=== PATIENT | female | born 1950 | race Two or more races ===

== ENCOUNTER 2024-03-09 10:09 | Inpatient (IN) | payer MEDICARE, OTHER ==
[~2024-03-09] VITALS: Ht 149.9 cm; Wt 40.8 kg
[2024-03-09] MEDS ORDERED: ADENOSINE 3 MG/ML 2ML VIAL IV ONE (10:26)
[2024-03-09] MEDS: ADENOSINE 3 MG/ML 2ML VIAL IV ONE ×3 (10:32→11:01)
[2024-03-09 11:18] LABS: HEMATOCRIT. 30.1 % (36.0-48.0); HEMOGLOBIN. 9.7 g/dL (12.0-16.0); MEAN CORPUSCULAR HEMOGLOBIN 34.5 pg (28.0-32.0); MEAN CORPUSCULAR HGB CONC 32.1 g/dL (31.0-37.0); MEAN CORPUSCULAR VOLUME 107.3 fL (81.0-99.0); MEAN PLATELET VOLUME 6.4 fl (7.4-10.4); PLATELET 231 x1000/uL (130-400); RED CELL DISTRIBUTION WIDTH 16.1 % (11.6-14.6); WHITE BLOOD COUNT 25.6 x1000/uL (4.5-11.0)
[2024-03-09 11:21] LABS: CHLORIDE 110 mEq/L (98-107); POTASSIUM 3.6 mEq/L (3.5-5.1); SODIUM 138 mEq/L (136-145)
[2024-03-09 11:22] LABS: CALCIUM 8.4 mg/dL (8.7-10.4); CARBON DIOXIDE 21 mEq/L (21-32)
[2024-03-09 11:24] LABS: DIFFERENTIAL COMMENT 1
[2024-03-09 11:27] LABS: CREATININE 1.3 mg/dL (0.6-1.0); GLUCOSE 102 mg/dL (70-105); UREA NITROGEN BLOOD 20 mg/dL (9-23)
[2024-03-09 11:28] LABS: TROPONIN I HIGH SENSITIVITY 15 ng/L (3.0-34)
[2024-03-09] MEDS: KETOROLAC 30MG/ML VIAL IV ONE (11:47)
[2024-03-09] MEDS: METOPROLOL TARTRATE 25MG TABLET PO SCH (13:45)
[2024-03-09 14:17] LABS: IRON 12 ug/dL (50-170); TRIGLYCERIDE 55 mg/dL (0-150)
[2024-03-09 14:18] LABS: LDL CHOLESTEROL 39 mg/dL (5-100)
[2024-03-09 14:19] LABS: ALANINE AMINOTRANSFERASE 10 IU/L (10-49); ALBUMIN 3.4 g/dL (3.2-4.8); ASPARTATE AMINOTRANSFERASE 24 IU/L (<34); BILIRUBIN DIRECT 0.5 mg/dL (<=3.0); CHOLESTEROL 95 mg/dL (<200); HDL CHOLESTEROL 43 mg/dL (>65)
[2024-03-09 14:20] LABS: BILIRUBIN TOTAL 1.3 mg/dL (0.1-1.0); PROTEIN TOTAL 5.5 g/dL (6.0-8.3); TOTAL IRON BINDING CAPACITY 210 ug/dl (250-425)
[2024-03-09 14:21] LABS: FOLIC ACID (FOLATE) SERUM 13.47 ng/mL (>5.38); VITAMIN B12 SERUM 500 pg/mL (211-911)
[2024-03-09 14:22] LABS: ETHANOL BLOOD < 10 mg/dL (<10); T4 FREE 0.97 ng/dL (0.89-1.76); THYROID STIMULATING HORMONE 0.61 uIU/mL (0.55-4.78)
[2024-03-09 16:00] LABS: ANISOCYTOSIS 1+; PLATELET ESTIMATE NORMAL
[2024-03-09] MEDS ORDERED: ACETAMINOPHEN 325MG TABLET PO PRN (17:30)
[2024-03-09] MEDS: LACTATED RINGERS IV ONE (17:30)
[2024-03-09] MEDS: LACTATED RINGERS 1,000 ML IV SCH (17:30)
[2024-03-09] MEDS ORDERED: IPRATROPIUM/ALBUTEROL 0.5-3(2.5)MG/3ML NEB NEB PRN (17:30)
[2024-03-09] MEDS ORDERED: GUAIFENESIN 200MG/10ML SUGAR FREE UDC PO PRN (17:30)
[2024-03-09] MEDS ORDERED: DOCUSATE SODIUM 100MG CAPSULE PO PRN (17:30)
[2024-03-09] MEDS ORDERED: MAGNESIUM/ALUMINUM HYDROXIDE/SIMETHICONE 30ML UDC PO PRN (17:30)
[2024-03-09] MEDS ORDERED: ZOLPIDEM TARTRATE 5MG TABLET PO PRN (17:30)
[2024-03-09 18:00] VITALS: BP 100/71; PULSE 62; RESP 29; TEMP 36.78072; O2SAT 98
[2024-03-09] MEDS ORDERED: CEFTRIAXONE 1GM/50ML 50 ML IV SCH (18:00)
[2024-03-09 18:31] VITALS: BP 92/62; PULSE 63; RESP 21; TEMP 36.8072
[2024-03-09 19:16] VITALS: BP 100/71; PULSE 62; RESP 29; TEMP 36.6696; O2SAT 98
[2024-03-09] MEDS: ENOXAPARIN 30MG/0.3ML SYR SUBCUT SCH (19:46)
[2024-03-09] MEDS ORDERED: AZITHROMYCIN 500MG/250ML 250 ML IV SCH (20:00)
[2024-03-09] MEDS: CEFTRIAXONE 1GM/50ML 50 ML IV SCH (20:27)
[2024-03-09] MEDS: ASCORBIC ACID 500 MG TABLET PO SCH (20:34)
[2024-03-09] MEDS: FAMOTIDINE 20MG TABLET PO SCH (20:34)
[2024-03-09] MEDS: AZITHROMYCIN 500MG/250ML 250 ML IV SCH (22:05)
[2024-03-09 22:31] LABS: INR 1.2; PROTHROMBIN TIME 12.8 sec (9.6-11.0)
[2024-03-09 22:46] LABS: LACTIC ACID 4.6 mmol/L (0.4-2.0)
[2024-03-09] MEDS: KETOROLAC 15MG/ML VIAL IV PRN (22:57)
[2024-03-10] VITALS: BP 92/61; PULSE 57; RESP 15; O2SAT 99
[2024-03-10 01:15] LABS: CREATINE KINASE MB FRACTION 0.5 ng/mL (0.5-3.6)
[2024-03-10 04:00] VITALS: BP 95/59; PULSE 56; RESP 20; TEMP 36.50292; O2SAT 97
[2024-03-10 07:00] LABS: CHLORIDE 107 mEq/L (98-107); POTASSIUM 3.7 mEq/L (3.5-5.1)
[2024-03-10 07:01] LABS: SODIUM 136 mEq/L (136-145)
[2024-03-10 07:04] LABS: CALCIUM 8.6 mg/dL (8.7-10.4); CARBON DIOXIDE 21 mEq/L (21-32); CREATINE KINASE MB FRACTION < 0.5 ng/mL (0.5-3.6); TROPONIN I HIGH SENSITIVITY 24 ng/L (3.0-34)
[2024-03-10 07:09] LABS: ALANINE AMINOTRANSFERASE 10 IU/L (10-49); CREATININE 1.6 mg/dL (0.6-1.0); GLUCOSE 103 mg/dL (70-105); UREA NITROGEN BLOOD 31 mg/dL (9-23)
[2024-03-10 07:11] LABS: ASPARTATE AMINOTRANSFERASE 19 IU/L (<34); BILIRUBIN TOTAL 0.5 mg/dL (0.1-1.0); CREATINE KINASE 27 IU/L (34-145); PHOSPHORUS 2.3 mg/dL (2.5-4.9); PROTEIN TOTAL 4.8 g/dL (6.0-8.3)
[2024-03-10 07:20] LABS: HEMATOCRIT. 31.2 % (36.0-48.0); HEMOGLOBIN. 10.2 g/dL (12.0-16.0); MEAN CORPUSCULAR HEMOGLOBIN 34.7 pg (28.0-32.0); MEAN CORPUSCULAR HGB CONC 32.7 g/dL (31.0-37.0); MEAN CORPUSCULAR VOLUME 106.1 fL (81.0-99.0); MEAN PLATELET VOLUME 7.7 fl (7.4-10.4); PLATELET 182 x1000/uL (130-400); RED BLOOD CELL COUNT 2.94 mill/uL (4.2-5.4); RED CELL DISTRIBUTION WIDTH 16.4 % (11.6-14.6); WHITE BLOOD COUNT 26.4 x1000/uL (4.5-11.0)
[2024-03-10 07:35] LABS: DIFFERENTIAL COMMENT 1
[2024-03-10 07:51] LABS: *AMPHETAMINES SCREEN URINE NEGATIVE (NEGATIVE); *BARBITURATES SCREEN URINE NEGATIVE (NEGATIVE); *BENZODIAZEPINES SCREEN URINE NEGATIVE (NEGATIVE); *COCAINE SCREEN URINE NEGATIVE (NEGATIVE); CANNABINOID URINE SCREEN NEGATIVE (NEGATIVE)
[2024-03-10 07:52] LABS: ECSTASY MDMA SCREEN URINE NEGATIVE (NEGATIVE); METHADONE URINE SCREEN NEGATIVE (NEGATIVE); OPIATES URINE SCREEN NEGATIVE (NEGATIVE); PHENCYCLIDINE URINE SCREEN NEGATIVE (NEGATIVE)
[2024-03-10 08:00] VITALS: BP 91/60; PULSE 57; RESP 19; TEMP 36.05844; O2SAT 100
[2024-03-10] MEDS ORDERED: ASPIRIN 325MG EC TABLET PO SCH (09:00)
[2024-03-10] MEDS: ZINC SULFATE 220 MG ( 50 ) CAPSULE PO SCH (09:26)
[2024-03-10 12:00] VITALS: BP 105/65; PULSE 83; RESP 24; TEMP 36.22512; O2SAT 98
[2024-03-10 16:00] VITALS: BP 120/75; PULSE 75; RESP 21; TEMP 36.6696; O2SAT 95
[2024-03-10 17:13] LABS: ANISOCYTOSIS 1+; PLATELET ESTIMATE NORMAL
[2024-03-10 20:00] VITALS: BP 115/74; PULSE 84; RESP 18; TEMP 36.9474; O2SAT 99
[2024-03-10] MEDS: METOPROLOL TARTRATE 25MG TABLET PO SCH (21:03)
[2024-03-11 04:00] VITALS: BP 124/75; PULSE 70; RESP 17; TEMP 36.78072; O2SAT 98
[2024-03-11 08:00] VITALS: BP 138/71; PULSE 70; RESP 18; TEMP 37.28076; O2SAT 98
[2024-03-11] MEDS: ASPIRIN 81MG TABLET PO SCH (09:22)
[2024-03-11] MEDS: ONDANSETRON HCL 4MG/2ML INJ IV PRN (09:31)
[2024-03-11 12:00] VITALS: BP 155/111; PULSE 69; RESP 14; TEMP 36.72516; O2SAT 97
[2024-03-11 16:00] VITALS: BP 124/63; PULSE 71; RESP 20; TEMP 36.78072; O2SAT 97
[2024-03-11 20:00] VITALS: BP 145/76; PULSE 78; RESP 23; TEMP 37.00296; O2SAT 100
[2024-03-12] VITALS: BP 151/78; PULSE 75; RESP 51; TEMP 37.05852; O2SAT 100
[2024-03-12 04:00] VITALS: BP 164/78; PULSE 63; RESP 27; TEMP 36.3918; O2SAT 98
[2024-03-12 08:00] VITALS: BP 153/76; PULSE 61; RESP 20; TEMP 37.00296; O2SAT 97
[2024-03-12] MEDS: CLONIDINE 0.1MG TABLET PO PRN (08:45)
[2024-03-12 12:00] VITALS: BP 104/65; PULSE 55; RESP 22; TEMP 36.9474; O2SAT 99
[2024-03-12] MEDS: AMLODIPINE 10MG TABLET PO SCH (12:00)
[2024-03-12] MEDS ORDERED: CEFAZOLIN 1000MG PREMIX 50 ML IV SCH (15:30)
[2024-03-12 16:00] VITALS: BP 107/62; PULSE 63; RESP 16; TEMP 37.00296; O2SAT 98
[2024-03-12] MEDS: CEFAZOLIN 1000MG PREMIX 50 ML IV SCH (17:45)
[2024-03-12] MEDS: ACETAMINOPHEN 325MG TABLET PO PRN (17:45)
[2024-03-12 20:15] VITALS: BP 107/89; PULSE 51; RESP 19; TEMP 36.16956; O2SAT 100
[2024-03-13] VITALS (67 sets, daily range): BP systolic 49–129; BP diastolic 22–93; PULSE 49–157; RESP 9–46; TEMP 36.114–36.89184; O2SAT 72–100
[2024-03-13] MEDS: NITROGLYCERIN 0.4MG TABLET SL SL PRN (01:04)
[2024-03-13] MEDS: ADENOSINE 3 MG/ML 2ML VIAL IV NR ×2 (04:04→04:34)
[2024-03-13] MEDS: METOPROLOL TARTRATE 5MG/5ML VIAL IV PRN (04:33)
[2024-03-13] MEDS: LORAZEPAM 2MG/ML INJ IV NR (04:49)
[2024-03-13] MEDS: DIGOXIN 500MCG/2ML AMP IV NR (05:19)
[2024-03-13] MEDS: METOPROLOL TARTRATE 5MG/5ML VIAL IV NR (05:20)
[2024-03-13] MEDS: SODIUM CHLORIDE 0.9% 500 ML IV NR (05:21)
[2024-03-13] MEDS ORDERED: DILTIAZEM HCL 125 MG in DEXT 5% WATER 100 ML IV ONE (05:30)
[2024-03-13] MEDS ORDERED: AMIODARONE 150MG/100ML 100 ML IV NR (06:00)
[2024-03-13 06:34] LABS: BG BASE EXCESS -7.2 mmol/L (-2.0-2.0); BG FRACTION INSPIRED OXYGEN 36; BG PCO2 20.2 mmHg (35.0-45.0); BG PH 7.459 (7.350-7.450); BG PO2 95.8 mmHg (75.0-100.0); BG VENT MODE NASAL CANNULA
[2024-03-13] MEDS: AMIODARONE HCL 900 MG in DEXT 5% WATER 482 ML IV PRN (07:42)
[2024-03-13] MEDS ORDERED: PHENYLEPHRINE 50 MG in DEXT 5% WATER 245 ML IV PRN (10:00)
[2024-03-13 10:12] LABS: CARBON DIOXIDE 10 mEq/L (21-32); CHLORIDE 107 mEq/L (98-107); POTASSIUM 4.5 mEq/L (3.5-5.1); SODIUM 135 mEq/L (136-145)
[2024-03-13 10:13] LABS: CALCIUM 8.6 mg/dL (8.7-10.4)
[2024-03-13 10:18] LABS: UREA NITROGEN BLOOD 27 mg/dL (9-23)
[2024-03-13 10:18] LABS: TROPONIN I HIGH SENSITIVITY 6186 ng/L (3.0-34)
[2024-03-13 10:18] LABS: HEMATOCRIT 34.7 % (36.0-48.0); HEMOGLOBIN 10.3 g/dL (12.0-16.0); MEAN CORPUSCULAR HEMOGLOBIN 33.8 pg (28.0-32.0); MEAN CORPUSCULAR HGB CONC 29.7 g/dL (31.0-37.0); PLATELET 64 x1000/uL (130-400); RED BLOOD CELL COUNT 3.04 mill/uL (4.2-5.4); RED CELL DISTRIBUTION WIDTH 18.1 % (11.6-14.6)
[2024-03-13 10:19] LABS: CREATINE KINASE MB FRACTION 7.1 ng/mL (0.5-3.6)
[2024-03-13 10:20] LABS: CREATINE KINASE 329 IU/L (34-145); PHOSPHORUS 2.2 mg/dL (2.5-4.9)
[2024-03-13 10:21] LABS: CREATININE 2.4 mg/dL (0.6-1.0)
[2024-03-13 10:23] LABS: GLUCOSE 48 mg/dL (70-105)
[2024-03-13] MEDS: DEXTROSE 50% WATER 50ML SYRINGE IV PRN (10:49)
[2024-03-13 11:41] LABS: BG BASE EXCESS -20.8 mmol/L (-2.0-2.0); BG CARBOXYHEMOGLOBIN 0.3 % (0.5-1.5); BG DEOXYHEMOGLOBIN 4.5 % (0.0-5.0); BG FRACTION INSPIRED OXYGEN 32; BG HCO3 ACT 6.4 mmol/L (22.0-26.0); BG METHEMOGLOBIN 0.3 % (0.0-1.5); BG OXYGEN SATURATION 95.5 % (92.0-98.5); BG OXYHEMOGLOBIN 94.9 % (94.0-97.0); BG PCO2 19.3 mmHg (35.0-45.0); BG PH 7.137 (7.350-7.450); BG PO2 93.3 mmHg (75.0-100.0); BG SAMPLE SITE RIGHT RADIAL; BG TOTAL HEMOGLOBIN 10.3 g/dL (12.0-18.0); BG VENT MODE NASAL CANNULA
[2024-03-13] MEDS: SODIUM BICARBONATE 8.4% 50MEQ/50ML SYR IV NR (11:46)
[2024-03-13] MEDS: MEROPENEM 1G/100ML 100 ML IV SCH (12:02)
[2024-03-13] MEDS ORDERED: LIDOCAINE HCL 1% 10 MG/ML 10ML VIAL ONE (12:41)
[2024-03-13] MEDS: VANCOMYCIN 500MG/100ML IV SCH (13:18)
[2024-03-13] MEDS: SODIUM BICARBONATE 150 MEQ in SODIUM CHLORIDE 0.45% 850 ML IV SCH (13:45)
[2024-03-13 16:46] LABS: BG CARBOXYHEMOGLOBIN 0.3 % (0.5-1.5); BG DEOXYHEMOGLOBIN 0.4 % (0.0-5.0); BG FRACTION INSPIRED OXYGEN 36; BG HCO3 ACT 18.6 mmol/L (22.0-26.0); BG METHEMOGLOBIN 0.3 % (0.0-1.5); BG OXYGEN SATURATION 99.6 % (92.0-98.5); BG PCO2 23.4 mmHg (35.0-45.0); BG PH 7.517 (7.350-7.450); BG PO2 160.1 mmHg (75.0-100.0); BG SAMPLE SITE RIGHT RADIAL; BG VENT MODE NASAL CANNULA
[2024-03-13] MEDS: SODIUM BICARBONATE 150 MEQ in DEXTROSE 5% WATER 850 ML IV SCH (17:43)
[2024-03-13] MEDS: MEROPENEM 500MG/50ML IV SCH (20:35)
[2024-03-14] VITALS (92 sets, daily range): BP systolic 81–124; BP diastolic 50–86; PULSE 62–92; RESP 13–40; TEMP 36.3918–36.9474; O2SAT 60–100
[2024-03-14 06:08] LABS: POTASSIUM 3.3 mEq/L (3.5-5.1)
[2024-03-14 06:09] LABS: CALCIUM 7.9 mg/dL (8.7-10.4)
[2024-03-14 06:14] LABS: CREATININE 2.1 mg/dL (0.6-1.0)
[2024-03-14 07:35] LABS: HEMATOCRIT. 29.7 % (36.0-48.0); HEMOGLOBIN. 9.7 g/dL (12.0-16.0); MEAN CORPUSCULAR HEMOGLOBIN 33.8 pg (28.0-32.0); MEAN CORPUSCULAR HGB CONC 32.8 g/dL (31.0-37.0); MEAN CORPUSCULAR VOLUME 103.1 fL (81.0-99.0); MEAN PLATELET VOLUME 9.4 fl (7.4-10.4); RED BLOOD CELL COUNT 2.88 mill/uL (4.2-5.4); RED CELL DISTRIBUTION WIDTH 16.3 % (11.6-14.6); WHITE BLOOD COUNT 27.3 x1000/uL (4.5-11.0)
[2024-03-14 07:52] LABS: DIFFERENTIAL COMMENT 1
[2024-03-14 07:54] LABS: PLATELET 39 x1000/uL (130-400)
[2024-03-14] MEDS: SODIUM CHLORIDE 0.9% 500 ML IV ONE (09:29)
[2024-03-14] MEDS: POTASSIUM CHLORIDE 20MEQ TABLET SR PO NR (12:21)
[2024-03-14 15:57] LABS: ANISOCYTOSIS 1+; PLATELET ESTIMATE MARKEDLY DECREASED
[2024-03-14] MEDS: VANCOMYCIN 500MG PREMIX 100 ML IV SCH (20:43)
[2024-03-15] VITALS (94 sets, daily range): BP systolic 88–148; BP diastolic 36–90; PULSE 65–102; RESP 13–33; TEMP 36.50292–36.6696; O2SAT 92–100
[2024-03-15 06:18] LABS: POTASSIUM 4.3 mEq/L (3.5-5.1)
[2024-03-15 06:19] LABS: CALCIUM 8.2 mg/dL (8.7-10.4)
[2024-03-15 06:24] LABS: CREATININE 1.7 mg/dL (0.6-1.0)
[2024-03-15 07:03] LABS: HEMATOCRIT. 30.6 % (36.0-48.0); HEMOGLOBIN. 9.9 g/dL (12.0-16.0); MEAN CORPUSCULAR HEMOGLOBIN 33.1 pg (28.0-32.0); MEAN CORPUSCULAR HGB CONC 32.3 g/dL (31.0-37.0); MEAN CORPUSCULAR VOLUME 102.6 fL (81.0-99.0); RED BLOOD CELL COUNT 2.99 mill/uL (4.2-5.4); RED CELL DISTRIBUTION WIDTH 16.3 % (11.6-14.6)
[2024-03-15 07:35] LABS: DIFFERENTIAL COMMENT 1
[2024-03-15 07:36] LABS: PLATELET 16 x1000/uL (130-400)
[2024-03-15 07:41] LABS: WHITE BLOOD COUNT 49.5 x1000/uL (4.5-11.0)
[2024-03-15 14:16] LABS: PLATELET ESTIMATE MARKEDLY DECREASED
[2024-03-15 14:17] LABS: TOXIC VACUOLATION FEW
[2024-03-15 14:19] LABS: ANISOCYTOSIS 1+
[2024-03-15] MEDS: VANCOMYCIN 500MG PREMIX 100 ML IV SCH (21:14)
[2024-03-16] VITALS (61 sets, daily range): BP systolic 99–141; BP diastolic 50–88; PULSE 62–87; RESP 17–38; TEMP 36.44736–37.11408; O2SAT 94–100
[2024-03-16 05:46] LABS: POTASSIUM 3.5 mEq/L (3.5-5.1)
[2024-03-16 05:47] LABS: CALCIUM 8.6 mg/dL (8.7-10.4)
[2024-03-16 05:52] LABS: CREATININE 1.1 mg/dL (0.6-1.0)
[2024-03-16 06:00] LABS: HEMATOCRIT. 27.8 % (36.0-48.0); HEMOGLOBIN. 9.2 g/dL (12.0-16.0); MEAN CORPUSCULAR HEMOGLOBIN 33.7 pg (28.0-32.0); MEAN CORPUSCULAR HGB CONC 33.2 g/dL (31.0-37.0); MEAN CORPUSCULAR VOLUME 101.2 fL (81.0-99.0); MEAN PLATELET VOLUME 10.1 fl (7.4-10.4); RED BLOOD CELL COUNT 2.75 mill/uL (4.2-5.4); RED CELL DISTRIBUTION WIDTH 16.1 % (11.6-14.6)
[2024-03-16 06:51] LABS: WHITE BLOOD COUNT 42.2 x1000/uL (4.5-11.0)
[2024-03-16 08:42] LABS: HEMATOCRIT 28.9 % (36.0-48.0); HEMOGLOBIN 9.6 g/dL (12.0-16.0); MEAN CORPUSCULAR HEMOGLOBIN 33.6 pg (28.0-32.0); MEAN CORPUSCULAR HGB CONC 33.3 g/dL (31.0-37.0); PLATELET 54 x1000/uL (130-400); RED BLOOD CELL COUNT 2.86 mill/uL (4.2-5.4); RED CELL DISTRIBUTION WIDTH 16.3 % (11.6-14.6); WHITE BLOOD COUNT 39.4 x1000/uL (4.5-11.0)
[2024-03-16] MEDS ORDERED: DOCUSATE SODIUM SUGAR FREE 100MG/10ML UDC GT PRN (15:30)
[2024-03-16] MEDS ORDERED: ACETAMINOPHEN 650MG/20.3ML UDC PO PRN (15:30)
[2024-03-16] MEDS ORDERED: LANSOPRAZOLE 30MG DR CAPSULE GT SCH (15:30)
[2024-03-16 15:37] LABS: ANISOCYTOSIS 1+; PLATELET ESTIMATE MARKEDLY DECREASED; TARGET CELLS 1+
[2024-03-16 15:38] LABS: PLATELET 42 x1000/uL (130-400)
[2024-03-16 15:46] LABS: DIFFERENTIAL COMMENT 1
[2024-03-16] MEDS: MEROPENEM 1G/100ML IV SCH (21:07)
[2024-03-16] MEDS: METOPROLOL TARTRATE 25MG TABLET PO SCH (21:09)
[2024-03-17] VITALS: BP 141/62; PULSE 68; RESP 18; TEMP 36.00288; O2SAT 97
[2024-03-17 04:00] VITALS: BP 108/72; PULSE 65; RESP 18; TEMP 36.61404; O2SAT 98
[2024-03-17] MEDS: LANSOPRAZOLE 30MG DR CAPSULE GT SCH (07:26)
[2024-03-17 08:00] VITALS: BP 112/76; PULSE 63; RESP 18; TEMP 36.3918; O2SAT 99
[2024-03-17 12:00] VITALS: BP 115/76; PULSE 63; RESP 20; TEMP 37.00296; O2SAT 98
[2024-03-17 16:00] VITALS: BP 111/50; PULSE 63; RESP 20; TEMP 36.78072; O2SAT 100
[2024-03-17 20:00] VITALS: BP 178/58; PULSE 63; RESP 17; TEMP 36.33624; O2SAT 90
[2024-03-18] VITALS: BP 100/61; PULSE 57; RESP 20; TEMP 36.55848; TEMP 37.7808; O2SAT 96
[2024-03-18 04:00] VITALS: BP 126/54; PULSE 59; RESP 18; TEMP 36.28068; O2SAT 93
[2024-03-18 07:43] VITALS: BP 105/60; PULSE 57; RESP 18; TEMP 36.61404; O2SAT 95
[2024-03-18 08:06] LABS: POTASSIUM 3.7 mEq/L (3.5-5.1)
[2024-03-18 08:07] LABS: CALCIUM 8.6 mg/dL (8.7-10.4)
[2024-03-18 08:11] LABS: CREATININE 1.1 mg/dL (0.6-1.0)
[2024-03-18] MEDS ORDERED: CAPE500T PO (08:34)
[2024-03-18 11:52] VITALS: BP 109/56; PULSE 57; RESP 18; TEMP 36.6696; O2SAT 96
[2024-03-18 16:14] VITALS: BP 129/77; PULSE 67; RESP 20; TEMP 36.72516; O2SAT 96
[2024-03-18] MEDS: ACETAMINOPHEN 650MG/20.3ML UDC PO PRN (18:28)
[2024-03-18 20:00] VITALS: BP 108/51; PULSE 64; RESP 20; TEMP 36.28068; O2SAT 96
[2024-03-19] VITALS: BP 123/58; PULSE 66; RESP 20; TEMP 36.28068; O2SAT 96
[2024-03-19 04:00] VITALS: BP 122/75; PULSE 71; RESP 18; TEMP 36.05844; O2SAT 95
[2024-03-19 08:00] VITALS: BP 119/62; PULSE 76; RESP 18; TEMP 36.61404; O2SAT 95
[2024-03-19 12:00] VITALS: BP 141/66; PULSE 71; RESP 17; TEMP 36.3918; O2SAT 100
[2024-03-19] MEDS: TRAMADOL 50MG TABLET PO PRN (14:33)
[2024-03-19 16:00] VITALS: BP 135/60; PULSE 75; RESP 18; TEMP 36.50292; O2SAT 96
[2024-03-19 20:00] VITALS: BP 106/53; PULSE 61; RESP 20; TEMP 36.3918; O2SAT 97
[2024-03-20] VITALS: BP 124/54; PULSE 65; RESP 20; TEMP 36.3918; O2SAT 97
[2024-03-20 04:00] VITALS: BP 127/77; PULSE 76; RESP 20; TEMP 36.50292; O2SAT 97
[2024-03-20 08:00] VITALS: BP 120/54; PULSE 72; RESP 17; TEMP 36.50292; O2SAT 98
[2024-03-20 12:00] VITALS: BP 126/81; PULSE 97; RESP 18; TEMP 36.61404; O2SAT 98
[2024-03-20 16:00] VITALS: BP 110/65; PULSE 65; RESP 18; TEMP 36.50292; O2SAT 100
[2024-03-20 20:00] VITALS: BP 104/51; PULSE 66; RESP 17; TEMP 37.16964; O2SAT 98
[2024-03-21] VITALS: BP 127/63; PULSE 67; RESP 19; TEMP 36.78072; O2SAT 97
[2024-03-21 04:00] VITALS: BP 129/63; PULSE 72; RESP 16; TEMP 37.28076; O2SAT 97
[2024-03-21 08:00] VITALS: BP 132/69; PULSE 75; RESP 18; TEMP 36.16956; O2SAT 98
[2024-03-21] MEDS ORDERED: IOHEXOL-300 100 ML BOTTLE ONE (11:09)
[2024-03-21 12:00] VITALS: BP 129/64; PULSE 59; RESP 18; TEMP 36.16956; O2SAT 97
[2024-03-21] MEDS ORDERED: METO25TA6 PO (12:13)
[2024-03-21 16:00] VITALS: BP 130/67; PULSE 67; RESP 18; TEMP 36.6696; O2SAT 98
[2024-03-21 20:00] VITALS: BP 100/67; PULSE 78; RESP 16; TEMP 36.33624; O2SAT 99
[2024-03-22] VITALS: BP 136/63; PULSE 70; RESP 17; TEMP 37.05852; O2SAT 100
[2024-03-22 04:00] VITALS: BP 127/73; PULSE 70; RESP 18; TEMP 36.28068; O2SAT 98
[2024-03-22 08:00] VITALS: BP 140/61; PULSE 65; RESP 18; TEMP 36.55848; O2SAT 100
[2024-03-22 12:00] VITALS: BP 130/62; PULSE 61; RESP 18; TEMP 36.78072; O2SAT 98
[2024-03-22 15:51] VITALS: BP 130/62; PULSE 82; TEMP 98.2; O2SAT 98
== END 2024-03-22 18:14 | disposition home health service (06) | DRG 871 ==
LOC: ER 10:09 → EDBEDREQ 12:35 → EDBEDREQTM 12:35 → 3WST 19:22 → CVICU 03-13 05:53 → 8WST 03-16 15:40 → 6EST 03-19 01:42
PROVIDERS: ADMIT Internal Medicine; ATTEND Internal Medicine
PROC: 02HV33Z Insertion of Infusion Device into Superior Vena Cava, Percutaneous Approach (ICD-10-PCS; principal; 2024-03-13)
PROC: B548ZZA Ultrasonography of Superior Vena Cava, Guidance (ICD-10-PCS; 2024-03-13)
DX: A41.9 Sepsis, unspecified organism (principal); G92.8 Other toxic encephalopathy; J96.91 Respiratory failure, unspecified with hypoxia; J18.9 Pneumonia, unspecified organism; N17.0 Acute kidney failure with tubular necrosis; I47.10 Supraventricular tachycardia, unspecified; D68.59 Other primary thrombophilia; I48.92 Unspecified atrial flutter; E87.3 Alkalosis; E87.20 Acidosis, unspecified; N13.6 Pyonephrosis; M54.9 Dorsalgia, unspecified; R65.20 Severe sepsis without septic shock; B96.20 Unspecified Escherichia coli [E. coli] as the cause of diseases classified elsewhere; Z20.822 Contact with and (suspected) exposure to COVID-19; R00.1 Bradycardia, unspecified; E83.51 Hypocalcemia; I16.0 Hypertensive urgency; E16.2 Hypoglycemia, unspecified; I48.91 Unspecified atrial fibrillation; D69.6 Thrombocytopenia, unspecified; Z88.5 Allergy status to narcotic agent; Z85.038 Personal history of other malignant neoplasm of large intestine; Z79.01 Long term (current) use of anticoagulants; D63.8 Anemia in other chronic diseases classified elsewhere
CPT/HCPCS: 36415; 36573; 36600; 71045; 74178; 78580; 80048; 80053; 80061; 80076; 80202; 80305; 80320; 82375; 82378; 82550; 82553; 82607; 82746; 82805; 82962; 83036; 83540; 83550; 83605; 83735; 83880; 84100; 84132; 84145; 84439; 84443; 84484; 85025; 85027; 85379; 87070; 87077; 87186; 87426; 93005; 93306; 93970; 97161; 99291; A6261; C1725; J0153; J0282; J0456; J0690; J0696; J1160; J1650; J1885; J2060; J2185; J2405; J3370; J3490; J7070; J7120; Q9967; G0480